=== PATIENT | female | born 1990 | race Caucasian/White ===

== ENCOUNTER 2024-02-02 23:09 | Emergency (ER) | payer OTHER ==
--- NOTE | 2024-02-02 23:15 | ERPHSYRPT ---
- History of Present Illness Time Seen by Provider: 02/02/24 23:15 Source: patient Exam Limitations: no limitations Physician History: This is a 33-year-old white female patient of nurse practitioner Abilio who presents with right arm "feeling cold" and has pain in the entire right arm which is described as achiness. Patient states that she can sense the "blood swishing around". There is no traumatic injury to the right upper extremity. She has never had anything like this before. She is also concerned the possible blood clot although she has no history of bleeding or clotting disorders. Patient does have a history of anxiety, depression and eating disorder Occurred: this afternoon Method of Injury: other (No injury) Quality: constant, aching Severity of Pain-Max: mild Severity of Pain-Current: mild Extremities Pain Location: arm: right, elbow: right, forearm: right, wrist: right, hand: right Modifying Factors: Improves With: nothing Associated Symptoms: none Allergies/Adverse Reactions: No Known Drug Allergies Allergy (Verified 02/02/24 23:34) Hx Influenza Vaccination/Date Given: No Hx Pneumococcal Vaccination/Date Given: No Travel Risk - International Travel Have you traveled outside of the country in past 3 weeks: No - Emerging Infectious Disease Are you exhibiting symptoms associated with any current EIDs: No - Review of Systems Constitutional: No Symptoms Eyes: No Symptoms Ears, Nose, & Throat: No Symptoms Respiratory: No Symptoms Cardiac: No Symptoms Abdominal/Gastrointestinal: No Symptoms Genitourinary Symptoms: No Symptoms Musculoskeletal: Other (Right arm achiness) Skin: No Symptoms Neurological: No Symptoms Psychological: No Symptoms Endocrine: No Symptoms Hematologic/Lymphatic: No Symptoms Immunological/Allergic: No Symptoms All Other Systems: Reviewed and Negative - Past Medical History Pertinent Past Medical History: Yes Neurological History: No Pertinent History ENT History: No Pertinent History Cardiac History: Other Respiratory History: No Pertinent History Endocrine Medical History: No Pertinent History Musculoskeletal History: No Pertinent History GI Medical History: No Pertinent History History: No Pertinent History Psycho-Social History: Depression, Eating Disorders Female Reproductive Disorders: Other Other Medical History: eating disorder at age 17,ovarian cyst hx., - Past Surgical History Past Surgical History: Yes Neuro Surgical History: No Pertinent History Cardiac: No Pertinent History Respiratory: No Pertinent History Gastrointestinal: Cholecystectomy, Hernia Repair Genitourinary: No Pertinent History Musculoskeletal: No Pertinent History Female Surgical History: Section Other Surgical History: T&A,Laparoscopy Expl.,Blood transf. with liver disease at . - Social History Smoking Status: Current every day smoker How long have you smoked: 4yrs Exposure to second hand smoke: Yes Drug Use: none - Nursing Vital Signs Nursing Vital Signs: Initial Vital Signs Temperature 98.3 F 02/02/24 23:22 Pulse Rate 86 02/02/24 23:22 Respiratory Rate 16 02/02/24 23:22 Blood Pressure 115/70 02/02/24 23:22 O2 Sat by Pulse Oximetry 98 02/02/24 23:22 Pain Scale Pain Intensity 1 - Physical Exam General Appearance: no apparent distress, alert, anxiety, thin Eyes, Ears, Nose, Throat Exam: normal ENT inspection, moist mucous membranes Neck Exam: normal inspection, non-tender, supple, full range of motion Cardiovascular/Respiratory Exam: chest non-tender, normal breath sounds, regular rate/rhythm, heart sounds normal, no respiratory distress Abdominal Exam: non-tender Back Exam: normal inspection, normal range of motion, No CVA tenderness, No vertebral tenderness Shoulder Exam: normal inspection, non-tender, no evidence of injury, normal ROM Elbow/Forearm Exam: normal inspection, non-tender, no evidence of injury, normal ROM Wrist Exam: normal inspection, non-tender, no evidence of injury, normal ROM Hand Exam: normal inspection, non-tender, no evidence of injury, normal ROM Neuro/Tendon Exam: normal sensation, normal motor functions, normal tendon functions, responds to pain, no evidence tendon injury Mental Status Exam: alert, oriented x 3, cooperative Skin Exam: normal color, warm, dry SpO2 Interpretation: normal O2 Delivery: Room Air - Course Nursing assessment & vital signs reviewed: Yes Ordered Tests: Active Orders 24 hr Category Date Time Status BMP Stat Lab 02/02/24 00:01 Completed D-DIMER QUANTITATIVE Stat Lab 02/02/24 00:01 Completed MAG [MAGNESIUM] Stat Lab 02/02/24 00:01 Completed Lab/Rad Data: Laboratory Result Diagrams 02/02/24 00:01 Laboratory Results 02/02/24 02/02/24 Range/Units 00:01 00:01 D-Dimer < 0.19 (0.0-0.50) mg/L Sodium 139 (135-145) mmol/L Potassium 3.7 (3.5-5.1) mmol/L Chloride 104 (98-107) mmol/L Carbon Dioxide 25 (22-30) mmol/L Anion Gap 13.5 (5-15) MEQ/L BUN 5 L (7-17) mg/dL Creatinine 0.57 (0.52-1.04) mg/dL Estimated GFR 123.8 ML/MIN Glucose 94 (74-106) mg/dL Calcium 9.3 (8.4-10.2) mg/dL Magnesium 1.9 (1.6-2.3) mg/dL - Progress Progress: unchanged Progress Note: 02/03/24 00:01 My medical decision making and the assignment of low complexity of this patient's medical issue today is based on review of the patient's past medical history, review of patient's medication list, review of patient drug allergy list, history present illness and physical findings on examination. The workup in this patient includes a BMP, magnesium level and D-dimer level. Differential diagnosis includes but is not limited to muscle skeletal pain, anxiety about health, electrolyte abnormalities, DVT This patient has not had any traumatic injury to the right upper extremity. Therefore, I I do not feel the patient requires an radiographic study of this right upper extremity. She has no evidence for cellulitis or infection. She has strong palpable distal radial pulses. Her right upper extremity is warm. We will check the electrolytes and D-dimer level. 02/03/24 00:35 I interpreted the patient's laboratory data results. Based on the laboratory data results, there are no acute, emergent medical issues at this time. Counseled pt/family regarding: lab results, diagnosis, need for follow-up Medical Desision Making - Diagnostic Testing Diagnostic test were ordered, analyzed, and reviewed by me: Yes - Risk of complications Minimal Risk: Minimal risk of morbidity - Departure Departure Disposition: Home Clinical Impression: Right arm pain Condition: Stable Critical Care Time: No Referrals: ONELIA WESLEY NP [Primary Care Provider] - Follow up/PCP as directed Additional Instructions: If there are no contraindications, may use Tylenol and ibuprofen for pain control. Call your primary care provider today, 02/03/2024, to make arranges for follow-up appointment for further evaluation and management and to be seen in the next 5 to 7 days.
[2024-02-02 23:23] VITALS: RESP 16; TEMP 98.3; O2SAT 98
[2024-02-03 00:27] LABS: ANION GAP 13.5 MEQ/L (5-15); Calcium 9.3 mg/dL (8.4-10.2); Creatinine 1 0.57 mg/dL (0.52-1.04); EST GLOMERULAR FILTRATION RATE 123.8 ML/MIN; MAGNESIUM 1.9 mg/dL (1.6-2.3); Potassium 3.7 mmol/L (3.5-5.1)
[2024-02-03 00:54] VITALS: BP 100/63; PULSE 77
== END 2024-02-03 01:04 | disposition home or self-care (01) ==
LOC: ED 23:09
DX: M79.601 Pain in right arm (principal); R20.2 Paresthesia of skin; Z72.0 Tobacco use
CPT/HCPCS: 36415; 80048; 83735; 85379; 99282